=== PATIENT | female | born 1970 | race Caucasian/White ===

== ENCOUNTER 2016-03-14 13:44 | Observation (INO) | payer BC ==
[~2016-03-14] VITALS: Ht 165.1 cm; Wt 58.9 kg
[2016-03-14] MEDS ORDERED: AMBIEN10 MG PO (14:00)
[2016-03-14] MEDS ORDERED: VYVANSE60 MG PO (14:00)
[2016-03-14] MEDS ORDERED: HYDROCODON-ACE1 EAC7 PO (14:01)
[2016-03-14] MEDS ORDERED: CLONAZEPAM0.5 MG PO (14:02)
[2016-03-14 15:07] LABS: EOSINOPHIL (%) 0 % (0-5); HEMATOCRIT 37.5 % (36.0-46.0); IMMATURE GRANULOCYTE (%) 0.4 % (0.0-0.7); IMMATURE GRANULOCYTE COUNT 0.4 K/uL; LYMPHOCYTE COUNT 1.2 K/uL (1.0-2.8); MCH 31.2 PG (29.0-34.0); MCV 86.6 FL (83-99); MEAN PLAT.VOLUME 10.8 uM^3 (9.5-12.4); MONOCYTE COUNT 0.7 K/uL (0-0.8); NEUTROPHIL (%) 78.9 % (45-76); NEUTROPHIL COUNT 7.3 K/uL (1.8-6.4); PLATELET COUNT 213 K/uL (156-360); RBC DIS.WIDTH-CV 12.5 % (11.8-14.6); RBC DIS.WIDTH-SD 38.2 % (39-53); RED BLOOD COUNT 4.33 M/uL (3.80-5.20); WHITE BLOOD COUNT 9.3 K/uL (4.1-10.2)
[2016-03-14 15:19] LABS: CHLORIDE 107 mEq/L (99-109); POTASSIUM 3.2 mEq/L (3.7-5.4); SODIUM 138 mEq/L (136-147)
[2016-03-14 15:21] LABS: GLUCOSE 104 mg/dL (70-99)
[2016-03-14 15:22] LABS: ANION GAP 8 MEQ/L (2-14)
[2016-03-14 15:22] LABS: ADD MIUA? YES; BILIRUBIN NEGATIVE; BLOOD SMALL; COLOR YELLOW ((YELLOW)); GLUCOSE (STRIP) NEGATIVE; KETONES TRACE; LEUKOCYTES SMALL; NITRITE NEGATIVE; PROTEIN (STRIP) TRACE; SPECIFIC GRAVITY 1.021 (1.000-1.030); UROBILINOGEN 0.2 MG/DL (0.2-1.0)
[2016-03-14 15:23] LABS: TOTAL BILIRUBIN 0.3 mg/dL (0.0-1.0)
[2016-03-14 15:25] LABS: ALKALINE PHOSPHATASE 36 IU/L (3-129); GFR ESTIMATE (CALCULATED) > 59 mL/min/
[2016-03-14 15:26] LABS: UREA NITROGEN (BUN) 10 mg/dL (9-23)
[2016-03-14 15:27] LABS: TROP-I INTERPRETATION NEGATIVE; TROPONIN-I < 0.01 ng/mL (0.0-0.30)
[2016-03-14 15:34] LABS: QUANTITATIVE HCG < 4.0 MIU/ML
[2016-03-14 15:42] LABS: HDL CHOLESTEROL 51 MG/DL (Desirable>=50); LDL CHOLESTEROL 80 mg/dL (Desirable<100); NON-HDL CHOLESTEROL 92 mg/dL (Desirable<160); TOTAL CHOLESTEROL 143 mg/dL (Desirable<200); TRIGLYCERIDES 60 MG/DL (Normal: <150)
[2016-03-14 15:45] LABS: BACTERIA 2+ /HPF; CASTS NONE SEEN /LPF; CRYSTALS NONE SEEN; EPITHELIAL CELLS 2+ /HPF; MUCUS NONE SEEN /LPF; RED BLOOD CELLS 0-5 /HPF (0-5); UCUL ADDED? YES
[2016-03-14 16:22] LABS: Estimated Average Glucose 91 mg/dL (70-123); HEMOGLOBIN A1c (GLYCOHEMOGLOB) 4.8 % HGB (Below 5.7)
[2016-03-14] MEDS ORDERED: IMITREX100 MG PO (19:35)
[2016-03-14 20:50] VITALS: BP 123/63
[2016-03-15] VITALS (8 sets, daily range): BP systolic 83–114; BP diastolic 52–66
[2016-03-15 06:32] LABS: HEMATOCRIT 36.9 % (36.0-46.0); MCH 30.8 PG (29.0-34.0); MCHC 34.4 G/DL (30.0-36.0); MCV 89.3 FL (83-99); MEAN PLAT.VOLUME 11.4 uM^3 (9.5-12.4); PLATELET COUNT 192 K/uL (156-360); RBC DIS.WIDTH-CV 13.1 % (11.8-14.6); RBC DIS.WIDTH-SD 42.7 % (39-53); RED BLOOD COUNT 4.13 M/uL (3.80-5.20)
[2016-03-15 06:55] LABS: ALKALINE PHOSPHATASE 27 IU/L (3-129); ANION GAP 11 MEQ/L (2-14); CHLORIDE 105 MEQ/L (99-109); GFR ESTIMATE (CALCULATED) > 59 mL/min/; GLUCOSE 108 mg/dL (70-99); SAMPLE HEMOLYSIS CHECK 0; SAMPLE ICTERIC CHECK 0; SAMPLE LIPEMIA CHECK 0; SODIUM 138 MEQ/L (136-147); TOTAL BILIRUBIN 0.4 MG/DL (0.0-1.0); UREA NITROGEN (BUN) 10 mg/dL (9-23)
[2016-03-15 06:56] LABS: POTASSIUM 4.1 MEQ/L (3.7-5.4)
[2016-03-15 12:23] LABS: PROLACTIN 25.8 NG/ML
[2016-03-16 03:22] VITALS: BP 92/48
[2016-03-16] MEDS ORDERED: BACTRIM,SEPT1 TABLET PO (08:37)
[2016-03-16] MEDS ORDERED: PRAVASTATIN SOD40 MG PO (08:38)
[2016-03-16] MEDS ORDERED: ASPIR-LOW81 MG PO (08:38)
[2016-03-16 08:40] VITALS: BP 101/55
[2016-03-16 08:42] VITALS: BP 102/59
[2016-03-16 08:44] VITALS: BP 121/66
== END 2016-03-16 12:09 | disposition home or self-care (01) ==
LOC: EME 13:44 → EDOF 18:58 → 5WEST 18:58
PROVIDERS: Emergency Medicine; Nurse Practitioner Adult Health
DX: R25.1 Tremor, unspecified (principal); R42 Dizziness and giddiness; H53.8 Other visual disturbances; M54.2 Cervicalgia; M25.519 Pain in unspecified shoulder; N39.0 Urinary tract infection, site not specified; B96.20 Unspecified Escherichia coli [E. coli] as the cause of diseases classified elsewhere; R00.0 Tachycardia, unspecified; F41.9 Anxiety disorder, unspecified; Z88.1 Allergy status to other antibiotic agents
CPT/HCPCS: 70496; 70498; 70551; 71020; 80053; 80061; 81003; 83036; 84146; 84484; 84702; 85025; 85027; 87077; 87086; 87186; 93005; 93306; 95819; 99281; 99285; G0378; J2060; J3360; J7030; J7040

== ENCOUNTER 2016-03-24 14:35 | Observation (INO) | payer BC ==
[~2016-03-24] VITALS: Ht 165.1 cm; Wt 57.3 kg
[~2016-03-24 14:35] MED LIST: AMBIEN10 MG PO; ASPIR-LOW81 MG PO; BACTRIM,SEPT1 TABLET PO; CLONAZEPAM0.5 MG PO; HYDROCODON-ACE1 EAC7 PO; IMITREX100 MG PO; PRAVASTATIN SOD40 MG PO; VYVANSE60 MG PO
[2016-03-24 15:47] LABS: EOSINOPHIL (%) 0 % (0-5); HEMATOCRIT 38.9 % (36.0-46.0); IMMATURE GRANULOCYTE (%) 0.1 % (0.0-0.7); IMMATURE GRANULOCYTE COUNT 0.1 K/uL; LYMPHOCYTE COUNT 1.3 K/uL (1.0-2.8); MCH 31.1 PG (29.0-34.0); MCV 88.8 FL (83-99); MONOCYTE (%) 8.9 % (3-12); MONOCYTE COUNT 0.8 K/uL (0-0.8); NEUTROPHIL (%) 75.5 % (45-76); NEUTROPHIL COUNT 6.4 K/uL (1.8-6.4); PLATELET COUNT 242 K/uL (156-360); RBC DIS.WIDTH-CV 12.9 % (11.8-14.6); RBC DIS.WIDTH-SD 41.5 % (39-53); RED BLOOD COUNT 4.38 M/uL (3.80-5.20); WHITE BLOOD COUNT 8.4 K/uL (4.1-10.2)
[2016-03-24 15:50] LABS: MEAN PLAT.VOLUME 9.4 uM^3 (9.5-12.4)
[2016-03-24 15:59] LABS: CHLORIDE 106 mEq/L (99-109); POTASSIUM 3.6 mEq/L (3.7-5.4); SODIUM 141 mEq/L (136-147)
[2016-03-24 16:01] LABS: GLUCOSE 102 mg/dL (70-99)
[2016-03-24 16:02] LABS: ANION GAP 11 MEQ/L (2-14)
[2016-03-24 16:03] LABS: TOTAL BILIRUBIN 0.5 mg/dL (0.0-1.0)
[2016-03-24 16:04] LABS: SERUM ETHYL ALCOHOL < 10 mg/dL
[2016-03-24 16:05] LABS: ALKALINE PHOSPHATASE 39 IU/L (3-129); GFR ESTIMATE (CALCULATED) > 59 mL/min/
[2016-03-24 16:06] LABS: UREA NITROGEN (BUN) 11 mg/dL (9-23)
[2016-03-24 16:08] LABS: CREATINE KINASE 30 IU/L (1-294); TOTAL CK 30 IU/L (1-294)
[2016-03-24 16:11] LABS: TROP-I INTERPRETATION NEGATIVE; TROPONIN-I 0.01 ng/mL (0.0-0.30)
[2016-03-24 16:13] LABS: QUANTITATIVE HCG < 4.0 MIU/ML
[2016-03-24 16:15] LABS: CK-MB 0.6 ng/mL (0.0-4.9)
[2016-03-24] MEDS ORDERED: ALPRAZOLAM0.25 M2 PO (16:15)
[2016-03-24] MEDS ORDERED: ESCITALOPRAM OX10 MG PO (16:16)
[2016-03-24 18:38] LABS: ADD MIUA? YES; BILIRUBIN NEGATIVE; BLOOD SMALL; COLOR YELLOW ((YELLOW)); GLUCOSE (STRIP) NEGATIVE; KETONES NEGATIVE; LEUKOCYTES NEGATIVE; NITRITE NEGATIVE; PROTEIN (STRIP) 30; SPECIFIC GRAVITY 1.017 (1.000-1.030); UROBILINOGEN 0.2 MG/DL (0.2-1.0)
[2016-03-24] MEDS ORDERED: PRAVACHOL40 MG PO (18:52)
[2016-03-24] MEDS ORDERED: VYVANSE60 MG PO (18:53)
[2016-03-24] MEDS ORDERED: MULTI-VITAMIN1 EAC3 PO (18:53)
[2016-03-24] MEDS ORDERED: NORCO 5/3251 TABLET PO (18:53)
[2016-03-24] MEDS ORDERED: AMBIEN10 MG PO (18:53)
[2016-03-24] MEDS ORDERED: LO-DOSE ASPIRIN81 M1 PO (18:54)
[2016-03-24 19:07] LABS: BACTERIA RARE /HPF; EPITHELIAL CELLS RARE /HPF; HYALINE CASTS 0-5 /LPF; MUCUS 4+ /LPF; RED BLOOD CELLS NONE SEEN /HPF (0-5); UCUL ADDED? NO; WHITE BLOOD CELLS 0-5 /HPF (0-5)
[2016-03-24 22:23] VITALS: BP 101/59
[2016-03-25 00:31] VITALS: BP 96/57
[2016-03-25 04:11] VITALS: BP 101/61
[2016-03-25 08:51] VITALS: BP 118/68
[2016-03-25 10:07] LABS: CARBON DIOXIDE (BICARBONATE) 28.6 MEQ/L (20-31)
[2016-03-25 10:23] LABS: ANION GAP 12 MEQ/L (2-14); CHLORIDE 102 MEQ/L (99-109); GFR ESTIMATE (CALCULATED) > 59 mL/min/; GLUCOSE 104 mg/dL (70-99); POTASSIUM 3.6 MEQ/L (3.7-5.4); SAMPLE HEMOLYSIS CHECK 0; SAMPLE ICTERIC CHECK 0; SAMPLE LIPEMIA CHECK 0; SODIUM 140 MEQ/L (136-147); UREA NITROGEN (BUN) 11 mg/dL (9-23)
[2016-03-25 11:05] LABS: PROLACTIN 40.1 NG/ML
[2016-03-25 16:35] VITALS: BP 103/56
[2016-03-25 20:22] VITALS: BP 108/57
[2016-03-25 22:44] VITALS: BP 103/51
[2016-03-26 04:35] VITALS: BP 106/56
[2016-03-26 08:56] VITALS: BP 122/69
[2016-03-26 09:40] LABS: HEMATOCRIT 40.8 % (36.0-46.0); MCH 31.3 PG (29.0-34.0); MCHC 34.1 G/DL (30.0-36.0); MCV 91.9 FL (83-99); MEAN PLAT.VOLUME 9.7 uM^3 (9.5-12.4); PLATELET COUNT 211 K/uL (156-360); RBC DIS.WIDTH-SD 43.5 % (39-53); RED BLOOD COUNT 4.44 M/uL (3.80-5.20); WHITE BLOOD COUNT 5.9 K/uL (4.1-10.2)
[2016-03-26 10:00] LABS: ANION GAP 8 MEQ/L (2-14); CHLORIDE 103 MEQ/L (99-109); POTASSIUM 3.9 MEQ/L (3.7-5.4); SAMPLE HEMOLYSIS CHECK 0; SAMPLE ICTERIC CHECK 0; SAMPLE LIPEMIA CHECK 0; SODIUM 137 MEQ/L (136-147)
[2016-03-26 10:05] LABS: GFR ESTIMATE (CALCULATED) > 59 mL/min/; GLUCOSE 100 mg/dL (70-99); UREA NITROGEN (BUN) 9 mg/dL (9-23)
== END 2016-03-26 11:47 | disposition home or self-care (01) ==
LOC: EME → EDBD 14:35 → EDOF 20:39 → 5WEST 20:39 → EDOF 20:39 → 5WEST 21:54
PROVIDERS: Emergency Medicine; Internal Medicine; Nurse Practitioner Family
DX: F44.5 Conversion disorder with seizures or convulsions (principal); E87.2 Acidosis; E87.6 Hypokalemia; R00.8 Other abnormalities of heart beat; F41.1 Generalized anxiety disorder; F42.9 Obsessive-compulsive disorder, unspecified; Z86.73 Personal history of transient ischemic attack (TIA), and cerebral infarction without residual deficits; Z88.1 Allergy status to other antibiotic agents; Z83.3 Family history of diabetes mellitus; Z82.49 Family history of ischemic heart disease and other diseases of the circulatory system
CPT/HCPCS: 80048; 80053; 81003; 82550; 82553; 82803; 83605; 84146; 84484; 84702; 85025; 85027; 93005; 95819; 99281; 99284; G0378; G0480; J1630; J2060; J2250; J7030